=== PATIENT | male | born 1980 | race Caucasian/White ===

== ENCOUNTER 2016-05-18 10:53 | Outpatient (CLI) ==
[2013-08-28 12:41] VITALS: BMI 22.8
[2016-05-18 11:11] LABS: BASOPHILS % (AUTO) 0.6 % (0.0-3.0); EOSINOPHILS # (AUTO) 0.3 K/ul (0.0-0.7); EOSINOPHILS % (AUTO) 3.8 % (0.0-7.0); HEMATOCRIT 47.7 % (42.0-52.0); HEMOGLOBIN 16.7 g/dl (14.0-18.0); IMMATURE GRANULOCYTE % (AUTO) 0.2 % (0.0-5.0); LYMPHOCYTES % (AUTO) 44.6 (10.0-50.0); MEAN CORPUSCULAR HEMOGLOBIN 29.8 pg (27.0-31.0); MEAN CORPUSCULAR VOLUME 85.2 fl (80.0-94.0); MONOCYTES # (AUTO) 0.5 K/uL (0.4-2.0); MONOCYTES % (AUTO) 6.9 (0-10); NEUTROPHILS # (AUTO) 2.9 K/ul (2.0-6.9); NEUTROPHILS % (AUTO) 43.9; PLATELET COUNT 193 10^3/uL (140-440); WHITE BLOOD COUNT 6.66 K/ul (4.2-10.2)
[2016-05-18 12:00] LABS: ALANINE AMINOTRANSFERASE 20 U/L (12-78); ALBUMIN 4.7 g/dL (3.4-5.0); ALBUMIN/GLOBULIN RATIO 1.62; ALKALINE PHOSPHATASE 89 U/L (50-136); ANION GAP 13.7; ASPARTATE AMINO TRANSFERASE 39 U/L (15-37); BILIRUBIN,TOTAL 1.29 mg/dL (0.00-1.20); BLOOD UREA NITROGEN 19 mg/dL (7-18); BUN/CREATININE RATIO 11.24; CALCIUM 9.4 mg/dL (8.2-10.2); CARBON DIOXIDE 29 mmol/L (21-32); CHLORIDE 101 mmol/L (98-107); CHOLESTEROL 342 mg/dL (0-200); CREATININE 1.69 mg/dL (0.60-1.10); GLUCOSE 87 mg/dL (70-100); HDL CHOLESTEROL 69 mg/dL (35-60); POTASSIUM 3.7 mmol/L (3.5-5.1); SODIUM 140 mmol/L (136-145); TOTAL PROTEIN 7.6 g/dL (6.4-8.2); TRIGLYCERIDES 106 mg/dL (30-150); VLDL CHOLESTEROL 21 mg/dL (2-30)
== END 2016-05-18 10:54 | disposition home or self-care (01) ==
LOC: LAB 10:53
PROVIDERS: ATTEND Emergency Medicine
DX: E03.9 Hypothyroidism, unspecified (principal); I48.91 Unspecified atrial fibrillation
CPT/HCPCS: 36415; 80053; 80061; 84439; 84443; 85025

== ENCOUNTER 2016-05-19 08:35 | Outpatient (CLI) | payer OTHER ==
[2013-08-28 12:41] VITALS: BMI 22.8
--- NOTE | 2016-05-19 09:30 | DI ---
EXAM: Fluoroscopic barium swallow HISTORY: Thyroidectomy with post radiation treatment and abnormal feeling once swallowing.. COMPARISON: Nuclear medicine thyroid study 12/02/2015 FINDINGS: Fluoroscopic evaluation demonstrates no discrete filling defect of the esophagus or hypoph arynx. There is a small posterior mass effect on the proximal esophagus with no discrete osteophyte identified. This minimally narrows the esophagus as seen on the oblique view. Lateral view. This is not demonstrated as well.. There is no aspiration. IMPRESSION: Mild mass effect on the superior posterior esophagus best seen on oblique views is of u nknown origin with no adjacent cervical osteophyte present. If further evaluation is indicated, dir ect visualization may be performed.
== END 2016-05-19 08:36 | disposition home or self-care (01) ==
LOC: RAD 08:35
PROVIDERS: ATTEND Emergency Medicine
DX: R13.10 Dysphagia, unspecified (principal)

== ENCOUNTER 2016-06-19 11:56 | Outpatient (CLI) ==
[2013-08-28 12:41] VITALS: BMI 22.8
== END 2016-06-19 11:57 | disposition home or self-care (01) ==
LOC: LAB 11:56
PROVIDERS: ATTEND Emergency Medicine
DX: E89.0 Postprocedural hypothyroidism (principal)
CPT/HCPCS: 36415; 84443

== ENCOUNTER 2016-07-12 13:12 | Outpatient (CLI) ==
[2013-08-28 12:41] VITALS: BMI 22.8
== END 2016-07-12 13:13 | disposition home or self-care (01) ==
LOC: LAB 13:12
PROVIDERS: ATTEND Emergency Medicine
DX: E03.9 Hypothyroidism, unspecified (principal)
CPT/HCPCS: 36415; 84439; 84443

== ENCOUNTER 2016-09-08 15:10 | Outpatient (CLI) | payer OTHER ==
[2013-08-28 12:41] VITALS: BMI 22.8
== END 2016-09-08 15:11 | disposition home or self-care (01) ==
LOC: LAB 15:10
PROVIDERS: ATTEND Emergency Medicine
DX: E05.90 Thyrotoxicosis, unspecified without thyrotoxic crisis or storm (principal)
CPT/HCPCS: 36415; 84439; 84443; 84480

== ENCOUNTER 2016-09-19 12:09 | Emergency (ER) ==
[2016-09-19 12:17] VITALS: BP 124/83; TEMP 98; BMI 25.7
--- NOTE | 2016-09-19 12:40 | ED.PDOC ---
General ED Provider: Dr. HERNAN PLASENCIA JR Chief Complaint: Knee Pain/Injury Stated Complaint: WHILE WORKING WENT TO STEP IN THE AMBULANCE AND FELT SOMETHING POP IN KNEE AND HAS BEEN PROGESSIVELY GETTING WORSE AND LAST NIGHT UNABLE TO BEND[End]2 weeks 98.0 63 16 96% 124/83 3/10 HURT KNEE WHILE WORKING AND HEARD SOMETHING POP AND HAS PROGRESSIVELY GETTING WORSE[End]right knee Time Seen by Physician: 12:39 Mode of Arrival: Walk-In Information Source: Patient Exam Limitations: No limitations [facility] Documentation Reviewed and Agree: No Review of Systems - Review Of Systems Constitutional: Reports: No symptoms Eyes: Reports: No symptoms Ears, Nose, Mouth, Throat: Reports: No symptoms Respiratory: Reports: No symptoms Cardiac: Reports: No symptoms GI: Reports: No symptoms : Reports: No symptoms Musculoskeletal: Reports: Joint pain Skin: Reports: No symptoms Neurological: Reports: No symptoms Endocrine: Reports: No symptoms Hematologic/Lymphatic: Reports: No symptoms All Other Systems: Other Past Medical History - Past Medical History Endocrine: Reports: Hyperthyroid Cardiovascular: Reports: A-Fib Respiratory: Reports: None Hematological: Reports: None Gastrointestinal: Reports: None Genitourinary: Reports: None Neuro/Psych: Reports: None Musculoskeletal: Reports: None Cancer: Reports: None Other Pertinent Past Medical History: THYRIODECTOMY AND RADIATION - Surgical History General Surgical History: Reports: Other (THYRIODECTOMY) - Family History Family History: Reports: Unknown - Social History Smoking Status: Current some day smoker Hx Substance Use: No Alcohol Screening: Occasionally - Immunizations Tetanus Shot up to Date: Yes Physical Exam - Physical Exam Appearance: Well-appearing Pain Distress: Moderate Neck: Supple Respiratory: Airway patent Musculoskeletal: Normal strength, Limited ROM (right knee swollen pain on rom negative meniscal signs no [id number] weakness) Skin: Warm, Dry, Normal color Neurological: Sensation intact, Motor intact, Reflexes intact, Cranial nerves intact, Alert, Oriented Critical Care Note - Critical Care Note Total Time (mins): 0 Course - Course Orders, Labs, Meds: Orders Category Date Time Status CRUTCHES [ED CRUTCHES] .ONCE EMERGENCY 09/19/16 13:28 Active Knee immobilizer [ED SPLINT APPLICATION] .ONCE EMERGENCY 09/19/16 13:01 Active KNEE, RIGHT 4 VIEWS Stat RADS 09/19/16 12:41 Completed Vital Signs: Temp Pulse Resp BP Pulse Ox 09/19/16 12:10 98 F 63 16 124/83 96 Departure - Departure Time of Disposition: 13:48 Disposition: HOME SELF-CARE Discharge Problem: Knee effusion, right Instructions: Swollen Knee Joint (ED) Condition: Good Pt referred to PMD for follow-up: Yes Additional Instructions: no weight on right leg elevate 2 hours two to three times a day splint for comfort follow up PMD in morning- consider orthopedic consult may need MRI Prescriptions: Tramadol HCl [Ultram] 50 mg PO Q6H PRN #14 tablet PRN Reason: PAIN Allergies/Adverse Reactions: Allergies methimazole Adverse Reaction (Verified 08/28/13 12:50) Home Medications: Ambulatory Orders Tramadol HCl [Ultram] 50 mg PO Q6H PRN #14 tablet 09/19/16
--- NOTE | 2016-09-19 13:41 | DI ---
EXAM: Four views of the right knee. History: Right knee pain. Findings: No acute fracture or dislocation. Large osteochondral defect within the medial femoral c ondyle measuring 2.5 cm x 1.1 cm. Mild tricompartmental joint space narrowing. Joint effusion. Impression: Large osteochondral defect within the medial femoral condyle. Joint effusion.
== END 2016-09-19 14:05 | disposition home or self-care (01) ==
LOC: ED 12:09
DX: M25.461 Effusion, right knee (principal); Y99.0 Civilian activity done for income or pay; F17.210 Nicotine dependence, cigarettes, uncomplicated
CPT/HCPCS: 99282

== ENCOUNTER 2018-01-15 13:51 | Outpatient (CLI) | payer OTHER | END 2018-01-15 13:52 | disposition home or self-care (01) | LOC: LAB 13:51 | PROVIDERS: ATTEND Family Medicine | DX: E55.9 Vitamin D deficiency, unspecified (principal); E03.9 Hypothyroidism, unspecified; Z13.220 Encounter for screening for lipoid disorders | CPT/HCPCS: 36415; 80053; 80061; 82306; 84436; 84443; 84479; 85027 ==

== ENCOUNTER 2018-07-08 09:24 | Outpatient (CLI) | payer OTHER | END 2018-07-08 09:25 | disposition home or self-care (01) | LOC: LAB 09:24 | PROVIDERS: ATTEND Family Medicine | DX: Z13.220 Encounter for screening for lipoid disorders (principal); Z79.899 Other long term (current) drug therapy; E03.9 Hypothyroidism, unspecified; E55.9 Vitamin D deficiency, unspecified | CPT/HCPCS: 36415; 80053; 80061; 82306; 84436; 84443; 84480 ==

== ENCOUNTER 2018-11-29 12:24 | Outpatient (CLI) | payer OTHER | END 2018-11-29 12:25 | disposition home or self-care (01) | LOC: LAB 12:24 | PROVIDERS: ATTEND Family Medicine | DX: R00.2 Palpitations (principal); E03.9 Hypothyroidism, unspecified; E78.5 Hyperlipidemia, unspecified; Z79.899 Other long term (current) drug therapy | CPT/HCPCS: 36415; 80053; 80061; 84436; 84443; 84480; 85027 ==